=== PATIENT | female | born 1995 | race Caucasian/White ===

== ENCOUNTER 2016-09-26 21:15 | Emergency (ER) | payer SELFPAY ==
[~2016-09-26] VITALS: Ht 170.2 cm; Wt 55.6 kg
[~2016-09-26 21:15] MED LIST: ATARAX,VISTARIL25 MG PO
[2016-09-26 23:43] VITALS: BP 119/85
== END 2016-09-26 23:44 | disposition home or self-care (01) ==
LOC: RME 21:15 → EME 21:15 → RME 23:44
PROC: 0HQEXZZ Repair Left Lower Arm Skin, External Approach (ICD-10-PCS; principal; 2016-09-26)
DX: S51.812A Laceration without foreign body of left forearm, initial encounter (principal); W26.0XXA Contact with knife, initial encounter
CPT/HCPCS: 99281; 99284

== ENCOUNTER 2017-08-31 00:44 | Emergency (ER) | payer SELFPAY ==
[~2017-08-31] VITALS: Ht 170.2 cm; Wt 54.8 kg
[2017-08-31] MEDS ORDERED: IBUPROFEN800 MG PO (02:17)
[2017-08-31] MEDS ORDERED: PEN-VEE K,VEET500 MG PO (02:17)
[2017-08-31 02:29] VITALS: BP 109/70
== END 2017-08-31 02:30 | disposition home or self-care (01) ==
LOC: EME 00:44
DX: J02.0 Streptococcal pharyngitis (principal)
CPT/HCPCS: 87651 90; 99281; 99284

== ENCOUNTER 2017-12-21 00:50 | Emergency (ER) | payer SELFPAY ==
[~2017-12-21] VITALS: Ht 172.7 cm; Wt 51.0 kg
[~2017-12-21 00:50] MED LIST changes: +IBUPROFEN800 MG PO; +PEN-VEE K,VEET500 MG PO
[2017-12-21 01:41] LABS: APPEARANCE CLEAR ((CLEAR)); BILIRUBIN NEGATIVE; BLOOD NEGATIVE; COLOR YELLOW ((YELLOW)); GLUCOSE (STRIP) NEGATIVE; KETONES NEGATIVE; LEUKOCYTES NEGATIVE; NITRITE NEGATIVE; PROTEIN (STRIP) NEGATIVE; SPECIFIC GRAVITY 1.014 (1.000-1.030); UCUL ADDED? NO; UROBILINOGEN 0.2 MG/DL (0.2-1.0)
[2017-12-21 01:49] LABS: AMPHETAMINE NEGATIVE (500 ng/mL); BARBITURATES NEGATIVE (200 ng/mL); BENZODIAZEPINES NEGATIVE (150 ng/mL); BUPRENORPHINE NEGATIVE (10 ng/mL); COCAINE NEGATIVE (150 ng/mL); METHADONE NEGATIVE (200 ng/mL); METHAMPHETAMINE NEGATIVE (500 ng/mL); OPIATES (MORPHINE) NEGATIVE (100 ng/mL); OXYCODONE NEGATIVE (100 ng/mL); PHENCYCLIDINE NEGATIVE (25 ng/mL); PROPOXYPHENE NEGATIVE (300 ng/mL); THC CANNABINOIDS PRESUMPTIVE POSITIVE (50 ng/mL); TRICYCLIC ANTIDEPRESSANTS NEGATIVE (300 ng/mL)
[2017-12-21] MEDS ORDERED: ATARAX,VISTARIL25 MG PO (01:50)
[2017-12-21 02:00] LABS: HEMATOCRIT 41.6 % (36.0-46.0); HEMOGLOBIN 14.7 G/DL (11.9-15.5); MCH 32.5 PG (29.0-34.0); MCHC 35.3 G/DL (30.0-36.0); PLATELET COUNT 256 K/uL (156-360); RBC DIS.WIDTH-CV 11.8 % (11.8-14.6); RBC DIS.WIDTH-SD 39.8 % (39-53); RED BLOOD COUNT 4.52 M/uL (3.80-5.20); WHITE BLOOD COUNT 8.1 K/uL (4.1-10.2)
[2017-12-21 02:10] LABS: CHLORIDE 104 mEq/L (99-109); POTASSIUM 3.7 mEq/L (3.7-5.4); SODIUM 140 mEq/L (136-147)
[2017-12-21 02:12] LABS: GLUCOSE 97 mg/dL (70-99)
[2017-12-21 02:15] LABS: SERUM ETHYL ALCOHOL < 10 mg/dL
[2017-12-21 02:16] LABS: CREATININE 0.8 mg/dL (0.6-1.3); GFR ESTIMATE (CALCULATED) > 59 mL/min/
[2017-12-21 02:17] LABS: UREA NITROGEN (BUN) 13 mg/dL (9-23)
[2017-12-21 02:52] VITALS: BP 142/101
[2017-12-21 03:07] LABS: QUANTITATIVE HCG < 4.0 MIU/ML
== END 2017-12-21 02:53 | disposition home or self-care (01) ==
LOC: EME 00:50
PROVIDERS: Emergency Medicine
DX: F41.1 Generalized anxiety disorder (principal)
CPT/HCPCS: 80048; 81003; 84702; 84999; 85027; 90839; 99281; 99283; G0480; Q0177